=== PATIENT | male | born 1960 | race Caucasian/White ===

== ENCOUNTER 2019-05-02 20:26 | Emergency (ER) | payer SELFPAY ==
[~2019-05-02] VITALS: Ht 177.8 cm; Wt 80.7 kg
--- NOTE | 2019-05-02 20:29 | ED.ADGEN ---
Past History Past Medical History: Cancer, Prostatitis Past Medical History Bladder CA Past Surgical History: TURP, Other Adult General Chief Complaint Chief Complaint "... I just got the jerry out today... but I have not urinated since then... " HPI HPI Patient is a 59 year old male who presents with above hx and complaints of urinary retention. Pt. had TURP on 04/07, and 04/28. by Dr. Gilliland at [facility]. Pt. had early catheter removed today. Dr. Gilliland called instructed nursing to replace the cath. Patient is currently on Cipro. Patient currently has a distended bladder. Jerry placed by nursing and patient had a weakly approximate 500 mL of urine out, with relief of his abdomen pain. Review of Systems Review of Systems Constitutional: Denies fever or chills [] Eyes: Denies change in visual acuity, redness, or eye pain [] HENT: Denies nasal congestion or sore throat [] Respiratory: Denies cough or shortness of breath [] Cardiovascular: No additional information not addressed in HPI [] GI: Denies nausea, vomiting, bloody stools or diarrhea []complaints of bladder distention and pain : Complains of hematuria and intermittent belly to empty his bladder Musculoskeletal: Denies back pain or joint pain [] Integument: Denies rash or skin lesions [] Neurologic: Denies headache, focal weakness or sensory changes [] Endocrine: Denies polyuria or polydipsia [] All other systems were reviewed and found to be within normal limits, except as documented in this note. Family History Family History Noncontributory Current Medications Current Medications Current Medications Medications (Trade) Dose Ordered Sig/Noé Start Time Stop Time Status Last Admin Dose Admin Oxycodone/ Acetaminophen (Percocet 5/325) 2 tab 1X ONCE 05/02/19 21:15 05/02/19 21:16 DC 05/02/19 21:20 2 TAB Phenazopyridine HCl (Pyridium) 200 mg 1X ONCE 05/02/19 21:15 05/02/19 21:16 DC 05/02/19 21:20 200 MG Allergies Allergies Allergies Coded Allergies Type Severity Reaction Last Updated Verified No Known Drug Allergies 05/02/19 No Physical Exam Physical Exam Constitutional: Well developed, well nourished, in acute distress, non-toxic appearance. [] HENT: Normocephalic, atraumatic, bilateral external ears normal, oropharynx moist, no oral exudates, nose normal. [] Eyes: PERRLA, EOMI, conjunctiva normal, no discharge. [] Neck: Normal range of motion, no tenderness, supple, no stridor. [] Cardiovascular:Heart rate regular rhythm, no murmur [] Lungs & Thorax: Bilateral breath sounds clear to auscultation [] Abdomen: Bowel sounds normal, soft, no tenderness,, no pulsatile masses. [Distended bladder Skin: Warm, dry, no erythema, no rash. [] Back: No tenderness, no CVA tenderness. [] Extremities: No tenderness, no cyanosis, no clubbing, ROM intact, no edema. [] Neurologic: Alert and oriented X 3, normal motor function, normal sensory f unction, no focal deficits noted. [] Psychologic: Affect anxious, judgement normal, mood normal. [] Current Patient Data Vital Signs Vital Signs Date Time Temp Pulse Resp B/P (MAP) Pulse Ox O2 Delivery O2 Flow Rate FiO2 05/02/19 21:25 97.7 68 18 132/77 (95) 98 Room Air Lab Results Laboratory Tests Test 05/02/19 21:25 Urine Collection Type U cath Urine Color Red Urine Clarity Cloudy Urine pH 5.5 Urine Specific [place] 1.015 Urine Protein >100 mg/dl (NEG-TRACE) Urine Glucose (UA) Neg mg/dL (NEG) Urine Ketones (Stick) Neg mg/dL (NEG) Urine Blood Large (NEG) Urine Nitrite Neg (NEG) Urine Bilirubin Neg (NEG) Urine Urobilinogen Dipstick 0.2 mg/dL (0.2 mg/dL) Urine Leukocyte Esterase Trace (NEG) Urine RBC >40 /HPF (0-2) Urine WBC 5-10 /HPF (0-4) Urine Squamous Epithelial Cells Few /LPF Urine Bacteria Few /HPF (0-FEW) Urine Mucus Slight /LPF EKG EKG [] Radiology/Procedures Radiology/Procedures [] Course & Med Decision Making Course & Med Decision Making Pertinent Labs and Imaging studies reviewed. (See chart for details). Recent elects to leave Jerry in until follow-up on Sunday with . Patient continue his Cipro as directed. Patient return of any concerns. [] Final Impression Final Impression 1. Urinary Retention[] 2. History of recent TURP 3. Bladder Cancer/Lesion Dragon Disclaimer Dragon Disclaimer This electronic medical record was generated, in whole or in part, using a voice recognition dictation system. Dragon Disclaimer This chart was dictated in whole or in part using Voice Recognition software in a busy, high-work load, and often noisy Emergency Department environment. It may contain unintended and wholly unrecognized errors or omissions. Dragon Disclaimer This chart was dictated in whole or in part using Voice Recognition software in a busy, high-work load, and often noisy Emergency Department environment. It may contain unintended and wholly unrecognized errors or omissions. YESI DIAZ MD May 02, 2019 20:29
[2019-05-02] MEDS ORDERED: PHENAZOPYRIDINE 200 MG TABLET. ONE (21:04)
[2019-05-02] MEDS ORDERED: oxyCODONE/APAP 5/325 1 TAB TABLET ONE (21:05)
[2019-05-02] MEDS ORDERED: CIPR500T94 PO (21:07)
[2019-05-02] MEDS ORDERED: oxyCODONE/APAP 5/325 1 TAB TABLET PO ONE (21:15)
[2019-05-02] MEDS ORDERED: PHENAZOPYRIDINE 200 MG TABLET. PO ONE (21:15)
[2019-05-02 21:25] VITALS: BP 132/77
[2019-05-02 22:00] LABS: BILIRUBIN,URINE NEG (NEG); CLARITY,URINE CLOUDY; COLOR,URINE RED; GLUCOSE,URINE NEG (NEG)
[2019-05-02 22:01] LABS: BACTERIA,URINE FEW /HPF (0-FEW); NITRITE,URINE NEG (NEG); RBC,URINE >40 /HPF (0-2); SQUAMOUS EPITHELIAL CELL,UR FEW /LPF; UROBILINOGEN,URINE 0.2 mg/dL (0.2 mg/dL)
== END 2019-05-02 21:30 | disposition home or self-care (01) ==
LOC: ER 20:26
DX: R33.9 Retention of urine, unspecified (principal); Z85.51 Personal history of malignant neoplasm of bladder
CPT/HCPCS: 51702; 81001; 87086; 99284